=== PATIENT | male | born 1960 | race Two or more races ===

== ENCOUNTER 2017-02-10 12:49 | Day surgery (SDC) | payer OTHER ==
[~2017-02-10] VITALS: Ht 182.9 cm; Wt 92.3 kg
[2017-02-10] MEDS ORDERED: METFORMIN (13:50)
[2017-02-10] MEDS ORDERED: BUPROPION (13:50)
[2017-02-10] MEDS ORDERED: EZETIMIBE (13:50)
[2017-02-10] MEDS ORDERED: ATORVASTATIN (13:50)
[2017-02-10] MEDS ORDERED: CITALOPRAM (13:50)
[2017-02-10 13:57] VITALS: Ht 182.9 cm; Wt 92.3 kg
[2017-02-10 14:10] VITALS: BP 134/75; PULSE 67; RESP 20
[2017-02-10] MEDS ORDERED: FENTAnyl 50 MCG/ML VIAL ONE (14:46)
[2017-02-10] MEDS ORDERED: MIDAZOLAM 1 MG/ML 2 ML INJ ONE ×2 (14:46)
[2017-02-10] MEDS ORDERED: MEPERIDINE 50 MG INJ ONE ×2 (14:47)
[2017-02-10 15:10] VITALS: BP 116/63; RESP 15
--- NOTE | 2017-02-10 15:29 | OPPN ---
Date/Time of Note Date/Time of Note DATE: 02/10/17 TIME: 15:27 Operative Report Preoperative Diagnosis H/O COLON POLYPS Postoperative Diagnosis NORMAL COLONOSCOPY Operation/Procedure Performed COLONOSCOPY Provider: KINGSLEY OLIVARES MD Anesthesia Type: moderate sedation (VERSED 4 MG/FENTANYL 75 MCG) Estimated blood loss: none Transfusion Required: no Specimen: none Grafts/Implants: none Complications: no KINGSLEY OLIVARES MD Feb 10, 2017 15:29
--- NOTE | 2017-02-10 17:18 | GILP ---
DATE OF PROCEDURE: 02/10/2017 PREOPERATIVE DIAGNOSIS: Screening colonoscopy. PROCEDURE: Colonoscopy up to cecum. POSTOPERATIVE DIAGNOSIS: Normal colonoscopy. DESCRIPTION OF PROCEDURE: The patient was put in left lateral decubitus. After obtaining informed consent, 4 mg IV Versed and 75 mg IV Demerol given, monitored, oximetry, EKG, blood pressure. Rectal examination done, which is normal. Advanced Olympus video colonoscope all the way to the cecum. Ileocecal valve easily identified. Appendix also seen from a distance. Photography done. Cecum, ascending colon, transverse colon, descending colon, sigmoid colon, and rectum including retroflexion were normal. Postoperatively the patient had no complication. RECOMMENDATIONS: Followup as outpatient in office yearly for occult blood and repeat colonoscopy in 10 years. Dictated By: Man Parra MD /ulises/jr /Document#: [id number] ; Kranthi Mccoy MD
== END 2017-02-10 17:05 | disposition home or self-care (01) ==
LOC: GIL 12:49
PROVIDERS: ATTEND Internal Medicine
DX: Z12.11 Encounter for screening for malignant neoplasm of colon (principal); E11.9 Type 2 diabetes mellitus without complications; E78.5 Hyperlipidemia, unspecified; J45.909 Unspecified asthma, uncomplicated
CPT/HCPCS: 45378; J2175; J2250; J3010; Z7610